=== PATIENT | male | born 1970 | race Caucasian/White ===

== ENCOUNTER 2023-09-15 21:10 | Outpatient (CLI) | payer BC | END 2023-09-15 23:59 | disposition critical access hospital (66) | LOC: EMS 21:10 | DX: R11.0 Nausea (principal); F10.10 Alcohol abuse, uncomplicated | CPT/HCPCS: A0425; A0427 ==

== ENCOUNTER 2023-09-15 21:30 | Emergency (ER) | payer BC, MEDICAID ==
--- NOTE | 2023-09-15 21:53 | ED Physician Documentation ---
History of Present Illness - Stated complaint Stated Complaint: ETOH - Chief complaint Chief Complaint: Neuro - History obtained from History obtained from: Patient, EMS - History of Present Illness Timing: Today Pain level max: 0 Pain level now: 0 - Additonal information Additional information: Patient is a 53-year-old male who presents to the emergency department complaining that he "drank too much". He denies any abdominal pain, nausea, vomiting. He states he feels "woozy". He is not suicidal or homicidal. He states he binge drinks every few weeks. Does not drink daily. He feels better after IV fluids with EMS. No chest pain. No shortness of breath. Review of Systems Constitutional: denies: Fever, Chills Respiratory: denies: Cough GI: denies: Nausea, Vomiting, Diarrhea Skin: denies: Rash PD PAST MEDICAL HISTORY - Past Medical History Past Medical History: Yes Cardiovascular: Hypertension - Allergies Allergies/Adverse Reactions: Allergies Allergy/AdvReac Type Severity Reaction Status Date / Time No Known Drug Allergies Allergy Verified 09/15/23 21:36 - Social History Does the pt drink ETOH?: Yes ETOH Use: Beer Does the pt have substance abuse?: No - Family History Family history: reports: Non contributory PD ED PE NORMAL - Vitals Vital signs reviewed: Yes - General General: Alert and oriented X 3, No acute distress - HEENT HEENT: Moist mucous membranes - Neck Neck: Supple, no meningeal sign - Cardiac Cardiac: RRR, Strong equal pulses - Respiratory Respiratory: No respiratory distress, Clear bilaterally - Abdomen Abdomen: Soft, Non tender, Non distended - Derm Derm: Warm and dry - Extremities Extremities: No edema, No calf tenderness / cord - Neuro Neuro: Alert and oriented X 3 - Psych Psych: Normal mood, Normal affect Results - Vitals Vitals: Vital Signs - 24 hr 09/15/23 09/15/23 09/16/23 21:36 22:00 00:00 Temperature 35.9 C L Heart Rate 101 H 75 70 Respiratory 16 21 16 Rate Blood Pressure 131/91 H 131/91 H 103/70 O2 Saturation 100 97 99 Oxygen O2 Source Room air - Labs Labs: Laboratory Tests 09/15/23 09/15/23 09/15/23 21:57 21:57 22:10 WBC 6.0 RBC 5.13 Hgb 16.1 Hct 47.5 MCV 92.6 MCH 31.4 H MCHC 33.9 RDW 12.5 Plt Count 139 MPV 11.3 Neut # (Auto) 3.0 Lymph # (Auto) 1.9 [place] # (Auto) 0.9 Eos # (Auto) 0.2 Baso # (Auto) 0.0 Absolute Nucleated RBC 0.00 Nucleated RBC % 0.0 Sodium 134 L Potassium 3.6 Chloride 103 Carbon Dioxide 20 L Anion Gap 11.0 BUN 15 Creatinine 0.9 Estimated GFR (MDRD) 88 L Glucose 118 H Calcium 8.7 Phosphorus 3.4 Magnesium 1.8 Total Bilirubin 1.4 H AST 33 ALT 48 Alkaline Phosphatase 51 Total Protein 6.1 L Albumin 4.0 Globulin 2.1 Albumin/Globulin Ratio 1.9 Lipase < 10 L Urine Color YELLOW Urine Clarity CLEAR Urine pH 5.5 Ur Specific [place] >=1.030 H Urine Protein NEGATIVE Urine Glucose (UA) NEGATIVE Urine Ketones TRACE Urine Occult Blood NEGATIVE Urine Nitrite NEGATIVE Urine Bilirubin NEGATIVE Urine Urobilinogen 0.2 (NORMAL) Ur Leukocyte Esterase NEGATIVE Ur Microscopic Review NOT INDICATED Urine Culture Comments NOT INDICATED Ethyl Alcohol 198.9 PD Medical Decision Making - ED course Complexity details: reviewed results, re-evaluated patient, considered differential, d/w patient ED course: 53-year-old male with alcohol intoxication. Feels better after IV fluids. No significant lab abnormalities other than elevated alcohol level. Tolerating p.o. without difficulty. No focal neurological deficits. GCS 15. Will have him follow-up with his doctor for further care. Request to go home with his at this time. Patient counseled regarding signs and symptoms for which I believe and urgent re-evaluation would be necessary. Patient with good understanding of and agreement to plan and is comfortable going home at this time This document was made in part using voice recognition software. While efforts are made to proofread this document, sound alike and grammatical errors may occur. Departure - Departure Disposition: 01 Home, Self Care Clinical Impression: Alcohol intoxication Qualifiers: Complication of substance-induced condition: uncomplicated Qualified Code(s): F10.920 - Alcohol use, unspecified with intoxication, uncomplicated Condition: Good Instructions: ED Alcohol Intoxication Follow-Up: Hugo Lara ARNP [Primary Care Provider] - Comments: Your alcohol level was significantly elevated tonight, and this was likely causing the lightheaded feeling. Please make sure you are drinking plenty of water at home. Please return if you worsen. I would recommend trying to abstain from drinking, especially binge drinking. Forms: PCP List Discharge Date/Time: 09/16/23 00:02
[2023-09-15] MEDS: SODIUM CHLORIDE 0.9% 1,000 ML IV STA ×2 (22:00→23:08)
[2023-09-15 22:03] LABS: BASOPHILS % (AUTO) 0.7 %; EOSINOPHILS # (AUTO) 0.2 10^3/uL (0.0-0.7); EOSINOPHILS % (AUTO) 3.8 %; HCT - HEMATOCRIT 47.5 % (42.0-52.0); HGB - HEMOGLOBIN 16.1 g/dL (14.0-18.0); LYMPHOCYTES # (AUTO) 1.9 10^3/uL (1.5-3.5); MEAN CORPUSCULAR HEMOGLOBIN 31.4 pg (27.0-31.0); MEAN CORPUSCULAR HGB CONC 33.9 g/dL (32.0-36.0); MEAN CORPUSCULAR VOLUME 92.6 fL (80.0-94.0); MEAN PLATELET VOLUME 11.3 fL (7.4-11.4); MONOCYTES # (AUTO) 0.9 10^3/uL (0.0-1.0); MONOCYTES % (AUTO) 14.2 %; NEUTROPHILS % (AUTO) 49.8 %; PLT - PLATELET COUNT 139 10^3/uL (130-450); RED BLOOD COUNT 5.13 10^6/uL (4.70-6.10); RED CELL DISTRIBUTION WIDTH 12.5 % (12.0-15.0)
[2023-09-15 22:16] LABS: BILIRUBIN,URINE NEGATIVE (NEGATIVE); GLUCOSE, URINE (UA) NEGATIVE (NEGATIVE); KETONES,URINE (UA) TRACE mg/dL (NEGATIVE); LEUKOCYTE ESTERASE, URINE NEGATIVE (NEGATIVE); NITRITE,URINE NEGATIVE (NEGATIVE); OCCULT BLOOD,URINE NEGATIVE (NEGATIVE); PH,URINE 5.5 PH (5.0-7.5); PROTEIN,URINE NEGATIVE (NEGATIVE); UROBILINOGEN,URINE 0.2 (NORMAL) E.U./dL (NORMAL)
[2023-09-15 22:17] LABS: CLARITY,URINE CLEAR (CLEAR)
[2023-09-15 22:27] LABS: ALBUMIN/GLOBULIN RATIO 1.9 (1.0-2.2); ALKALINE PHOSPHATASE 51 IU/L (42-121); ALT ALANINE AMINOTRANSFERASE 48 IU/L (10-60); AST ASPARTATE AMINOTRANSFERASE 33 IU/L (10-42); BILIRUBIN,TOTAL 1.4 mg/dL (0.2-1.0); BUN - BLOOD UREA NITROGEN 15 mg/dL (6-20); CALCIUM 8.7 mg/dL (8.5-10.3); CARBON DIOXIDE - CO2 20 mmol/L (21-32); CHLORIDE 103 mmol/L (101-111); CREATININE 0.9 mg/dL (0.6-1.3); ETOH - ETHANOL 198.9 mg/dL; GFR - MDRD 88 (>89); GLUCOSE 118 mg/dL (74-104); MAGNESIUM 1.8 mg/dL (1.7-2.3); PHOSPHORUS 3.4 mg/dL (2.5-5.0); POTASSIUM 3.6 mmol/L (3.5-4.5); SODIUM 134 mmol/L (135-145); TOTAL PROTEIN 6.1 g/dL (6.4-8.9)
[2023-09-15 22:28] LABS: LIPASE < 10 U/L (11-82)
[2023-09-16 00:07] VITALS: BP 103/70; O2SAT 99
== END 2023-09-16 00:02 | disposition home or self-care (01) ==
LOC: EDUNIT# → EDSEX → ED 21:30
DX: F10.920 Alcohol use, unspecified with intoxication, uncomplicated (principal); Y90.6 Blood alcohol level of 120-199 mg/100 ml
CPT/HCPCS: 36415; 80053; 81001; 81003; 82077; 83690; 83735; 84100; 85025; 87086; 99283; 99284